=== PATIENT | female | born 1940 | race Caucasian/White ===

== ENCOUNTER 2023-11-09 14:47 | Emergency (ER) | payer MEDICARE ==
[2023-11-09 17:54] LABS: Bilirubin Neg (Negative); Blood, Urine Negative (Negative); Clarity Slightly Cloudy (Clear); Glucose, Urine (Dipstick) Normal (Negative); Ketone, Urine Negative (Negative); Leukocyte 500 (Negative); Nitrite Negative (Negative); Protein, Urine (Dipstick) 100 mg/dl (Neg-Trace); Specific Gravity, Urine 1.015 (1.005-1.030); Urobilinogen Normal mg/dL (Less than 2)
[2023-11-09 18:14] LABS: RBC/HPF None Seen HPF (0-3)
[2023-11-09 18:15] LABS: Bacteria/HPF 4+ HPF (None Seen); CAUTI Indications for Culture Pelvic or flank pain; Squamous Epithelial 0-3 HPF (0-3); Urine Culture Reflex Yes Yes; WBC/HPF 21-50 HPF (0-3)
[2023-11-09] MEDS ORDERED: Lidocaine 1% w/Epinephrine 1:200K 30 ML VIAL ONE (18:40)
[2023-11-09] MEDS ORDERED: cefTRIAXone (ROCEPHIN) 1 GM VIAL ONE (20:14)
== END 2023-11-09 20:45 | disposition home or self-care (01) ==
LOC: CSHERS 14:47
DX: S01.111A Laceration without foreign body of right eyelid and periocular area, initial encounter (principal); N39.0 Urinary tract infection, site not specified; E11.9 Type 2 diabetes mellitus without complications; I48.91 Unspecified atrial fibrillation; I10 Essential (primary) hypertension; Z87.891 Personal history of nicotine dependence; Z79.84 Long term (current) use of oral hypoglycemic drugs; Z79.899 Other long term (current) drug therapy; W19.XXXA Unspecified fall, initial encounter
CPT/HCPCS: 51701; 70450; 72125; 81001; 87077; 87086; 87186; 96374; J0696

== ENCOUNTER 2025-04-27 11:02 | Emergency (ER) | payer MEDICARE, OTHER ==
[2025-04-27] MEDS ORDERED: Ondansetron PF 4 MG/2 ML Vial ONE (11:31)
[2025-04-27 11:55] LABS: #Basophils 0.05 10x3/uL (0.0-0.2); #Eosinophils 0.76 10x3/uL (0.0-0.5); #Monocytes 0.62 10x3/uL (0.0-1.1); #Neutrophils 6.57 10x3/uL (1.5-8.4); %Basophils 0.5 % (0.0-2.0); %Eosinophils 8.2 % (0.0-6.0); %Lymphocytes 12.8 % (18.0-47.0); %Monocytes 6.7 % (0.0-10.0); %Neutrophils 71.3 % (40.0-75.0); Hematocrit 34.8 % (34.9-44.5); Hemoglobin 10.8 g/dL (12.0-15.5); Mean Corpuscular Hemoglobin 26.8 pg (27.0-33.0); Mean Corpuscular Volume 86.4 fL (81.6-98.3); Platelet Count 187 10x3/uL (150-450); Red Blood Cell (RBC) Count 4.03 10x6/uL (3.90-5.03); White Blood Cell (WBC) Count 9.23 10x3/uL (3.5-10.5)
[2025-04-27 12:07] LABS: INR-International Normal Ratio 1.0; PTT 24.4 sec (22.0-33.0); Prothrombin Time 10.8 sec (9.5-12.1)
[2025-04-27 12:10] LABS: ALT (SGPT) Less than 7 U/L (Less than 34); AST (SGOT) 18 U/L (11-34); Albumin 3.6 g/dL (3.1-4.5); Alkaline Phosphatase 43 U/L (40-110); Anion Gap 15 mmol/L (10-20); BUN (Urea Nitrogen) 29 mg/dL (9.8-20.1); Bilirubin, Total 0.3 mg/dL (0.3-1.2); Calc. Creatinine Clearance 0 mL/min (70-130); Calcium 8.3 mg/dL (7.8-10.44); Carbon Dioxide 22 mmol/L (23-31); Chloride 110 mmol/L (98-107); Globulin 2.3 g/dL (2.4-3.5); Glucose 112 mg/dL (83-110); Lipase 13 U/L (8-78); Potassium 4.2 mmol/L (3.5-5.1); Sodium 143 mmol/L (136-145)
[2025-04-27] MEDS ORDERED: Iopamidol 300 61% 100 ML VIAL FS ONE (12:57)
[2025-04-27 16:17] LABS: Glucose, Urine (Dipstick) Normal (Negative); Leukocyte 500 (Negative); Protein, Urine (Dipstick) 30 mg/dl (Neg-Trace); Specific Gravity, Urine 1.015 (1.005-1.030)
[2025-04-27 16:57] LABS: Bacteria/HPF 4+ HPF (None Seen); CAUTI Indications for Culture Pelvic or flank pain; Mucous/LPF 1+ LPF (<2+); WBC/HPF 21-50 HPF (0-3)
[2025-04-27 16:58] LABS: Urine Culture Reflex Yes Yes
== END 2025-04-27 17:00 | disposition home or self-care (01) ==
LOC: CSHERS 11:02
DX: S32.591A Other specified fracture of right pubis, initial encounter for closed fracture (principal); I10 Essential (primary) hypertension; E11.9 Type 2 diabetes mellitus without complications; W01.0XXA Fall on same level from slipping, tripping and stumbling without subsequent striking against object, initial encounter; Z79.899 Other long term (current) drug therapy; Z79.84 Long term (current) use of oral hypoglycemic drugs; I48.91 Unspecified atrial fibrillation
CPT/HCPCS: 51701; 70450; 71260; 72125; 72170; 73552; 74177; 80053; 81001; 83690; 85025; 85610; 85730; 87077; 87086; 87186; 93005; 96374; 96375; 99285; J2270; J2405; Q9967; 36415

== ENCOUNTER 2025-07-15 08:48 | Inpatient (IN) | payer MEDICARE ==
[2025-07-15 09:22] LABS: Actual Bicarbonate (HCO3v) 24.8 mEq/L (22-28); Analyzer IN Cardio CS ER; Base Excess 1.0 mEq/L (-2 - +2); Calcium, Ionized (venous) 1.10 mmol/L (1.16-1.32); Chloride (VBG) 105 mmol/L (98-106); Hematocrit-VBG 33 % (36.0-47.0); Hemoglobin (Hb) 11.1 g/dL (11.7-16.1); Potassium (VBG) 3.97 mmol/L (3.70-5.30); Puncture Site Other Site; Sodium 142 mmol/L (133-146)
[2025-07-15 09:28] LABS: #Basophils 0.04 10x3/uL (0.0-0.2); #Eosinophils Less than 0.03 10x3/uL (0.0-0.5); #Monocytes 0.71 10x3/uL (0.0-1.1); #Neutrophils 14.23 10x3/uL (1.5-8.4); %Basophils 0.3 % (0.0-2.0); %Eosinophils 0.1 % (0.0-6.0); %Lymphocytes 3.6 % (18.0-47.0); %Monocytes 4.5 % (0.0-10.0); %Neutrophils 90.9 % (40.0-75.0); Hematocrit 31.0 % (34.9-44.5); Hemoglobin 9.7 g/dL (12.0-15.5); Mean Corpuscular Hemoglobin 26.1 pg (27.0-33.0); Mean Corpuscular Volume 83.6 fL (81.6-98.3); Platelet Count 288 10x3/uL (150-450); Red Blood Cell (RBC) Count 3.71 10x6/uL (3.90-5.03); White Blood Cell (WBC) Count 15.65 10x3/uL (3.5-10.5)
[2025-07-15 09:45] LABS: ALT (SGPT) 8 U/L (Less than 34); AST (SGOT) 17 U/L (11-34); Albumin 3.5 g/dL (3.1-4.5); Alkaline Phosphatase 45 U/L (40-110); Anion Gap 17 mmol/L (10-20); BUN (Urea Nitrogen) 26 mg/dL (9.8-20.1); Calc. Creatinine Clearance 0 mL/min (70-130); Calcium 8.8 mg/dL (7.8-10.44); Carbon Dioxide 22 mmol/L (23-31); Chloride 108 mmol/L (98-107); Globulin 2.6 g/dL (2.4-3.5); Glucose 155 mg/dL (83-110); Potassium 4.3 mmol/L (3.5-5.1); Sodium 143 mmol/L (136-145)
[2025-07-15 09:47] LABS: Bilirubin, Total 0.3 mg/dL (0.3-1.2)
[2025-07-15 09:51] LABS: Troponin I 0.012 ng/mL (< 0.028)
[2025-07-15 10:04] LABS: Glucose, Urine (Dipstick) Normal (Negative); Leukocyte Negative (Negative); Protein, Urine (Dipstick) 30 mg/dl (Neg-Trace); Specific Gravity, Urine 1.005 (1.005-1.030)
[2025-07-15 10:13] LABS: Bacteria/HPF 3+ HPF (None Seen); CAUTI Indications for Culture Alt mental st,lethar; RBC/HPF 0-3 HPF (0-3); WBC/HPF 0-3 HPF (0-3)
[2025-07-15 10:14] LABS: Urine Culture Reflex No No
[2025-07-15 13:19] LABS: INR-International Normal Ratio 1.0; Prothrombin Time 10.9 sec (9.5-12.1)
[2025-07-15] MEDS ORDERED: Glucagon 1 MG/ML KIT IM PRN (13:58)
[2025-07-15] MEDS ORDERED: Acetaminophen 325 MG TAB PO PRN (13:58)
[2025-07-15] MEDS ORDERED: Dextrose 50% Abboject 50 ML SYRINGE SLOW IVP PRN (13:58)
[2025-07-15 15:20] VITALS: BMI 30.9
[2025-07-15] MEDS: Vancomycin 1.5 GRAM/300 ML BAG 1.5 GM in Premix 1 BAG IVPB SCH (15:32)
[2025-07-15 15:38] LABS: CSF, Glucose 81 mg/dl (40-70); CSF, Protein 33.9 mg/dL (15-40)
[2025-07-15 15:54] LABS: Color Of CSF Supernatant COLORLESS (Colorless); Unspun CSF Color COLORLESS (Colorless)
[2025-07-15 16:18] LABS: CSF RBC Count - Manual 405 /cu.mm (None Seen); CSF Source CSF; CSF WBC/NonHematics Count-Man 1 /cu.mm (0-5)
[2025-07-15 16:19] LABS: CSF RBC Count - Manual 180 /cu.mm (None Seen)
[2025-07-15] MEDS: PNEUMOC 20-VAL CONJ-DIP CRM/PF 0.5 ML SYRINGE IM ONE (17:57)
[2025-07-15] MEDS ORDERED: Vancomycin 1 GM in Sodium Chloride 0.9% 250 ML 300 ML IVPB SCH (21:00)
[2025-07-15] MEDS: Famotidine 20 MG TAB PO SCH (21:31)
[2025-07-16 05:44] LABS: #Basophils 0.03 10x3/uL (0.0-0.2); #Eosinophils 0.14 10x3/uL (0.0-0.5); #Monocytes 0.69 10x3/uL (0.0-1.1); #Neutrophils 5.01 10x3/uL (1.5-8.4); %Basophils 0.4 % (0.0-2.0); %Eosinophils 2.0 % (0.0-6.0); %Lymphocytes 15.8 % (18.0-47.0); %Monocytes 9.8 % (0.0-10.0); %Neutrophils 71.6 % (40.0-75.0); Hematocrit 26.2 % (34.9-44.5); Hemoglobin 8.4 g/dL (12.0-15.5); Mean Corpuscular Hemoglobin 26.6 pg (27.0-33.0); Mean Corpuscular Volume 82.9 fL (81.6-98.3); Platelet Count 207 10x3/uL (150-450); Red Blood Cell (RBC) Count 3.16 10x6/uL (3.90-5.03); White Blood Cell (WBC) Count 7.01 10x3/uL (3.5-10.5)
[2025-07-16 05:57] LABS: Anion Gap 15 mmol/L (10-20); BUN (Urea Nitrogen) 28 mg/dL (9.8-20.1); Calc. Creatinine Clearance 27 mL/min (70-130); Calcium 8.2 mg/dL (7.8-10.44); Carbon Dioxide 22 mmol/L (23-31); Chloride 111 mmol/L (98-107); Glucose 89 mg/dL (83-110); Potassium 3.5 mmol/L (3.5-5.1); Sodium 144 mmol/L (136-145)
[2025-07-16] MEDS ORDERED: Vancomycin Dose by Levels Sliding Scale (Wt <71) FS SCH (06:00)
[2025-07-16] MEDS ORDERED: Benzonatate 100 MG CAP PO PRN (09:30)
[2025-07-16] MEDS: Enoxaparin 30 MG (0.3 mL) SYRINGE SC SCH (11:13)
[2025-07-16 14:06] LABS: Vancomycin, Random 15.6 ug/mL (See Comment)
[2025-07-16] MEDS: Divalproex Sodium 250 MG DR.TAB PO SCH (15:38)
[2025-07-16] MEDS: Ipratropium Bromide 2.5 ml Neb NEB SCH (17:25)
[2025-07-16] MEDS: Memantine 5 MG TAB PO SCH (21:09)
[2025-07-16] MEDS: Metoprolol Succinate XL 50 MG ER.TAB PO SCH (21:09)
[2025-07-16] MEDS: Mirtazapine 15 MG TAB PO SCH (21:09)
[2025-07-17] MEDS: metFORMIN 500 MG TAB PO SCH (08:21)
[2025-07-17] MEDS: Furosemide 40 MG TAB PO SCH (08:21)
[2025-07-17] MEDS: Lisinopril 10 MG TAB PO SCH (08:22)
[2025-07-17] MEDS: Ferrous Sulfate 325 MG TAB PO SCH (08:22)
[2025-07-17] MEDS ORDERED: Non-Formulary Medication 1 EACH (Tiotropium [Spiriva Handihaler] 18 MCG Box) INH SCH (09:00)
[2025-07-17] MEDS: lamoTRIgine 25 MG TAB PO SCH (10:02)
[2025-07-17] MEDS: Sulfamethoxazole/Trimethoprim 800-160mg/20 ML UDCUP PO SCH (17:29)
[2025-07-17] MEDS: Melatonin 3 MG TAB PO PRN (20:49)
[2025-07-18] MEDS: Sulfamethoxazole/Trimethoprim 800-160mg/20 ML UDCUP PO SCH (05:52)
[2025-07-18 09:53] VITALS: BP 149/64; TEMP 97.5
== END 2025-07-18 08:50 | DRG 871 ==
LOC: CSHERS 08:48 → CSHTELE 13:39 → OBSVTOIN 07-16 15:28
PROVIDERS: ADMIT Internal Medicine; ATTEND Internal Medicine
PROC: 009U3ZZ Drainage of Spinal Canal, Percutaneous Approach (ICD-10-PCS; principal; 2025-07-15)
PROC: B01B1ZZ Fluoroscopy of Spinal Cord using Low Osmolar Contrast (ICD-10-PCS; 2025-07-15)
PROC: 3E03329 Introduction of Other Anti-infective into Peripheral Vein, Percutaneous Approach (ICD-10-PCS; 2025-07-17)
DX: A41.51 Sepsis due to Escherichia coli [E. coli] (principal); G93.41 Metabolic encephalopathy; N39.0 Urinary tract infection, site not specified; F02.84 Dementia in other diseases classified elsewhere, unspecified severity, with anxiety; F02.83 Dementia in other diseases classified elsewhere, unspecified severity, with mood disturbance; I10 Essential (primary) hypertension; E11.9 Type 2 diabetes mellitus without complications; Z66 Do not resuscitate; G40.909 Epilepsy, unspecified, not intractable, without status epilepticus; G30.9 Alzheimer's disease, unspecified; Z96.642 Presence of left artificial hip joint; D64.9 Anemia, unspecified; B96.20 Unspecified Escherichia coli [E. coli] as the cause of diseases classified elsewhere; Z88.2 Allergy status to sulfonamides; Z88.6 Allergy status to analgesic agent; Z90.49 Acquired absence of other specified parts of digestive tract; Z98.890 Other specified postprocedural states; Z88.8 Allergy status to other drugs, medicaments and biological substances; Z79.84 Long term (current) use of oral hypoglycemic drugs; Z79.899 Other long term (current) drug therapy; Z90.12 Acquired absence of left breast and nipple
CPT/HCPCS: 36415; 36416; 62270; 70450; 71045; 80048; 80053; 80202; 81001; 82805; 82945; 83605; 83880; 84145; 84157; 84484; 85025; 85610; 86592; 86612; 86635; 86698; 86788; 86789; 87040; 87070; 87077; 87081; 87086; 87186; 87205; 87428; 87633; 89051; 93005; 94640; 94760; 97139; J1650; J2250; J2543; J3373; J7120; J7644